=== PATIENT | male | born 1960 | race African-American/Black ===

== ENCOUNTER 2017-06-29 19:49 | Emergency (ER) | payer OTHER ==
[2017-06-29] MEDS ORDERED: Bupivacaine 0.5%* 50 ML VIAL INJ ONE (21:12)
[2017-06-29] MEDS ORDERED: Bupivacaine 0.5% SDV PF* 10-30ML VIAL ONE (21:13)
--- NOTE | 2017-06-29 22:09 | ED ---
Laceration/Wound HPI - HPI Summary HPI Summary: Patient presents from [address] [place] [address] with through and through laceration to the lip after slipping and falling in the shower. The laceration extends to approximately 2.5 cm involving the left upper lip and the nasal labial sulcus. He endorses a 2 out of 10 pain. History of Guillain-Celis, but otherwise healthy. Takes no medications. Denies loss of consciousness or hitting his head. Bleeding is controlled on arrival. Denies blood thinners. Denies recent illness, fevers, sweats, chills or other concerns at this time. - History of Current Complaint Stated Complaint: MOUTH LAC Time Seen by Provider: 06/29/17 20:29 Hx Obtained From: Patient Mechanism of Injury: Sharp/Blunt Trauma Onset/Duration: Sudden Onset, Lasting Hours Aggravating: Movement Alleviating: Compression Timing: Constant Onset Severity: Mild Current Severity: Mild Pain Intensity: 6 Pain Scale Used: 0-10 Numeric Associated Signs & Symptoms: Negative - Allergy/Home Medications Allergies/Adverse Reactions: Allergies Allergy/AdvReac Type Severity Reaction Status Date / Time No Known Allergies Allergy Verified 06/29/17 19:52 PMH/Surg Hx/FS Hx/Imm Hx Previously Healthy: Yes - Immunization History Hx Pertussis Vaccination: No Immunizations Up to Date: Unable to Obtain/Confirm Infectious Disease History: No Infectious Disease History: Denies: Traveled Outside the [place] in Last 30 Days - Social History Occupation: Unemployed Lives: With Family Alcohol Use: None Hx Substance Use: No Substance Use Type: Reports: None Hx Tobacco Use: No Smoking Status (MU): Unknown if Ever Smoked Review of Systems Constitutional: Negative Negative: Fever, Chills, Fatigue Eyes: Negative Cardiovascular: Negative Respiratory: Negative Positive: no symptoms reported, see HPI Musculoskeletal: Negative Positive: Other - through and through laceration to the lip Neurological: Negative All Other Systems Reviewed And Are Negative: Yes Physical Exam Triage Information Reviewed: Yes Vital Signs On Initial Exam: Initial Vitals Temp Pulse Resp BP Pulse Ox 97.6 F 82 16 146/86 97 06/29/17 19:52 06/29/17 19:52 06/29/17 19:52 06/29/17 19:52 06/29/17 19:52 Vital Signs Reviewed: Yes Appearance: Positive: Well-Appearing, Well-Nourished Skin: Positive: Warm, Skin Color Reflects Adequate Perfusion Diagnostics - Vital Signs Vital Signs Temp Pulse Resp BP Pulse Ox 06/29/17 19:52 97.6 F 82 16 146/86 97 - Laboratory Lab Statement: Any lab studies that have been ordered have been reviewed, and results considered in the medical decision making process. Laceration Repair Course/Dx - Course Course Of Treatment: During the course of treatment, the patient is evaluated for a through and through left upper lip laceration also involving the left nasal labial sulcus. Timeout obtained and cleansed wound thoroughly using normal saline. 2ml bupivacaine using a regional nerve block infraorbitally with successful anesthetization. Explored the wound and no foreign bodies were observed. Closure obtained by opposing the vermilion border. Closing the inner and outer dermal fat junctions using 3 sutures 5-0 absorbable Monocryl closing the orbicularis muscle layer with 3, 5-0 chormic gut absorbable sutures using deep buried. Vermilion border appropriated and finally, closing the epidermal layer and appropriating edges well using 5, 6-0 nonabsorbable Prolene. One suture to the left submental area of the skin. Tetanus up-to- date. Prophylactic antibiotics prescribed. Keflex 500 mg given in the ED. Total sutures placed = 12. Patient is referred to Dr. Roth. He is okay for discharge at this time and has no concerns. - Clinical Impression Provider Diagnoses: Laceration of lip - Physician Notifications Instructed by Provider To: Have Pt Call For Appt. - Dr. Roth Discharge - Discharge Plan Condition: Stable Disposition: HOME Referrals: Librado Roth MD [Medical Doctor] - No Primary Care Phys,NOPCP [Primary Care Provider] - Additional Instructions: Ibuprofen 600 mg 3 times daily Ice to the lip 4-5 times daily for 15 minutes at a time Follow-up with Dr. Rodriguez Suture removal in 5-7 days depending on provider assessment Keep the area moist Salty foods may aggravate the area
[2017-06-29] MEDS ORDERED: Cephalexin CAP* 500 MG PO ONE (22:11)
[2017-06-29 22:27] VITALS: BP 146/80
== END 2017-06-29 22:26 | disposition home or self-care (01) ==
LOC: ED 19:49
DX: S01.511A Laceration without foreign body of lip, initial encounter (principal); W18.2XXA Fall in (into) shower or empty bathtub, initial encounter; Y93.E1 Activity, personal bathing and showering; Y92.9 Unspecified place or not applicable
CPT/HCPCS: 12011; 99282; A9270-GY